=== PATIENT | male | born 1970 | race Caucasian/White ===

== ENCOUNTER 2018-05-26 06:39 | Day surgery (SDC) | payer OTHER ==
[2018-05-26] VITALS (490 sets, daily range): BP systolic 92–120; BP diastolic 71–90; PULSE 65–81; TEMP 97.6–98.5; O2SAT 94–100
[~2018-05-26] VITALS: Ht 185.4 cm; Wt 127.5 kg
[2018-05-26 07:39] LABS: HEMATOCRIT 42.6 % (42.0-52.0); HEMOGLOBIN 14.9 g/dl (13.5-18.0); MEAN CELL VOLUME 89 fl (80.0-100.0); MEAN CORPUSCULAR HEMOGLOBIN 31 pg (27.0-31.0); MEAN CORPUSCULAR HGB CONC 35 g/dl (33.0-37.0); MEAN PLATELET VOLUME 10.1 fl (7.4-10.4); PLATELET COUNT 301 K/mm3 (130-400); RED BLOOD COUNT 4.78 M/mm3 (4.20-5.60); REDCELL DISTRIBUTION WIDTH-CV 12.6 % (11.5-14.5)
[2018-05-26 07:44] LABS: INR 0.9 (0.8-3.0); PROTHROMBIN TIME 9.8 SECONDS (9.7-12.8)
[2018-05-26 07:45] LABS: CALCIUM 9.1 mg/dL (8.4-10.2); CREATININE, serum 0.9 mg/dL (0.66-1.25); POTASSIUM 4.5 mmol/L (3.4-5.0)
[2018-05-26] MEDS ORDERED: ASPIRIN 81M81 MG/TA2 PO (08:09)
[2018-05-26] MEDS ORDERED: TOPROL XL 25MG25 MG PO (08:09)
[2018-05-26] MEDS ORDERED: NITROSTAT0.4 MG/TAB SL (08:10)
[2018-05-26] MEDS ORDERED: PERCOCET 325 MG1 TA2 PO (08:25)
--- NOTE | 2018-05-26 10:43 | NUR ---
Pt to procedure,report to SVITLANA Rosas.
--- NOTE | 2018-05-26 11:12 | NUR ---
ALL MEDS GIVEN VIA VERBAL WITH READBACK. SEE MERGE FOR ADMIN TIMES.
--- NOTE | 2018-05-26 12:03 | NUR ---
Per report from [facility] to transfer to ICU #1.
--- NOTE | 2018-05-26 12:15 | NUR ---
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 Flat time restrictions reviewed with patient. Care assumed.
--- NOTE | 2018-05-26 13:15 | NUR ---
PATIENT C/O RIGHT LEG PAIN WHEN FEELING PULSES AND THEN WHEN I PALPATE HIS CALF. DR. HAINES CALLED WITH UPDATE. ORDER FOR ULTRASOUND RECEIVED.
--- NOTE | 2018-05-26 16:43 | NUR ---
PATIENT ALLOWED TO GET UP FROM FLAT TIME AT 1620. HE STATES HE NEEDS TO HAVE A BM. PATIENT HAS BM THEN GETS BACK IN BED. AT APPROX 1630, PATIENT C/O INTENSE PAIN IN RIGHT GROIN. ESTIMATING HIS BODY LANGUAGE, HIS PAIN WAS 10/10. PATIENT GROIN SITE ASSESSED, CONTINUES TO BE SOFT AND DRESSING HAS SMALL AMOUNT OF DRAINAGE ON SIDE AGAINST THE SKIN. NO EVIDENCE OF HEMATOMA OR BLEEDING. VS WNL. BP 127/92, HR 65. PATIENT'S PAIN IS LESS AFTER A FEW MINUTES. HE STATES HIS PAIN STARTS IN THE GROIN AND TRAVELS ALL THE WAY DOWN THE LEG. DR. HAINES CALLED WITH UPDATE WHILE I'M AT THE BEDSIDE. HE STATES TO GET AN ARTERIAL ULTRASOUND IN THE MORNING. ALSO RECEIVED ORDER FOR BEDREST UNTIL ULTRASOUND TOMORROW.
--- NOTE | 2018-05-26 17:30 | NUR ---
REASSESSED PATIENT MULTIPLE TIMES OVER THE PAST HOUR. PATIENT STATES THAT HIS PAIN IS MUCH BETTER AND IS CURRENTLY IN THE RIGHT GROIN AND GOES DOWN TO THE RIGHT KNEE AREA. PULSES CONTINUE TO BE PALPABLE IN RIGHT FOOT. WILL CONTINUE TO MONITOR.
--- NOTE | 2018-05-26 19:30 | NUR ---
RIGHT FEMORAL SITE: SCANT BLOODY DRAINAGE ON DRESSING. SITE TENDER DIRECTLY OVER INSERTION SITE, BUT SURROUNDING AREA NON-TENDER AND SOFT. NO HEMATOMA PRESENT. PT RIGHT LEG COOLER THAN LEFT LEG. PULSES PRESENT IN BOTH FEET. PT DID JUMP WHEN SITE PALPATED DIRECTLY ON TOP. PT RATES PAIN 3/10 AT SITE AND DESCRIBED DULL AND ACHEY, NON-RADIATING.
--- NOTE | 2018-05-26 19:40 | NUR ---
Bedside report given to SVITLANA Ozuna. Groin site examined together. Patient site clean and soft. Scant drainage on dressing. Patient has pain when site palpated. Plan of care reviewed. Care turned over at this time.
[2018-05-27] VITALS (599 sets, daily range): BP systolic 107–123; BP diastolic 76–88; PULSE 75–77; TEMP 98; O2SAT 84–100
[2018-05-27 05:03] LABS: BASO % 0.4 % (0.0-2.0); EOS # 0.3 (0.0-0.7); EOS % 3.1 % (0-4.0); GRAN % 62.4 % (42.2-75.2); HEMATOCRIT 39.8 % (42.0-52.0); HEMOGLOBIN 13.9 g/dl (13.5-18.0); LYMPH # 2.6 (1.2-3.4); LYMPH % 26.3 % (20.0-51.0); MEAN CELL VOLUME 88 fl (80.0-100.0); MEAN CORPUSCULAR HEMOGLOBIN 31 pg (27.0-31.0); MEAN CORPUSCULAR HGB CONC 35 g/dl (33.0-37.0); MEAN PLATELET VOLUME 10.1 fl (7.4-10.4); MONO # 0.7 (0.1-0.6); MONO % 7.4 % (1.7-9.3); PLATELET COUNT 267 K/mm3 (130-400); REDCELL DISTRIBUTION WIDTH-CV 12.4 % (11.5-14.5)
[2018-05-27 05:13] LABS: CALCIUM 8.5 mg/dL (8.4-10.2); CREATININE, serum 0.81 mg/dL (0.66-1.25)
--- NOTE | 2018-05-27 07:10 | NUR ---
BEDSIDE REPORT RECEIVED FROM SVITLANA MARTELL. PATIENT SITTING UP ON SIDE OF BED WITH C/O SMALL AMOUNT OF RIGHT GROIN/LEG PAIN. VS WNL. CARE ASSUMED.
[2018-05-27] MEDS ORDERED: BRILINTA90 MG PO (09:48)
[2018-05-27] MEDS ORDERED: TOPROL XL 25MG25 MG PO (09:48)
[2018-05-27] MEDS ORDERED: LIPITOR 80MG80 MG PO (09:48)
[2018-05-27] MEDS ORDERED: ASPIRIN 81M81 MG/TA2 PO (09:48)
[2018-05-27] MEDS ORDERED: NITROSTAT0.4 MG/TAB SL (09:48)
[2018-05-27] MEDS ORDERED: TYLENOL 325MG325 MG PO (09:48)
--- NOTE | 2018-05-27 10:45 | NUR ---
PATIENT DISCHARGED AFTER DISCHARGE INSTRUCTIONS AND POST CATH INSTRUCTIONS REVIEWED. FOLLOW UP APPT AND PRESCRIPTIONS SENT WITH THE PATIENT. QUESTIONS ANSWERED. PATIENT WALKED OUT TO THE VISITOR ENTRANCE AND LEFT VIA PRIVATE VEHICLE.
== END 2018-05-27 10:50 | disposition home or self-care (01) ==
LOC: COL.CAR 06:39 → ICU 12:33 → COL.CAR 05-27 10:50
PROVIDERS: Internal Medicine Cardiovascular Disease
DX: I25.10 Atherosclerotic heart disease of native coronary artery without angina pectoris (principal); R94.39 Abnormal result of other cardiovascular function study; G47.30 Sleep apnea, unspecified; I31.9 Disease of pericardium, unspecified; Z82.49 Family history of ischemic heart disease and other diseases of the circulatory system
CPT/HCPCS: OP; C1725; C1760; C1769; C1874; C1887; C1894; C9600; J0583; J1644; J2250; J3010; Q9967

== ENCOUNTER 2018-06-06 16:33 | Inpatient (IN) | payer OTHER ==
[~2018-06-06] VITALS: Ht 368.3 cm; Wt 127.0 kg
[2018-06-06] VITALS (341 sets, daily range): BP systolic 106–120; BP diastolic 0–97; PULSE 70–71; TEMP 97.6–98.7; O2SAT 92–100
--- NOTE | 2018-06-06 16:31 | NUR ---
Received report from SVITLANA Alvarado from [facility].
[~2018-06-06 16:33] MED LIST: ASPIRIN 81M81 MG/TA2 PO; BRILINTA90 MG PO; LIPITOR 80MG80 MG PO; NITROSTAT0.4 MG/TAB SL; PERCOCET 325 MG1 TA2 PO; TOPROL XL 25MG25 MG PO; TYLENOL 325MG325 MG PO
--- NOTE | 2018-06-06 18:53 | NUR ---
Finished patients assessment. Got patient settled. Called JOSE Hubbard and and Dr. Hopkins to confirm diet. Patient is resting in bed.
--- NOTE | 2018-06-06 20:00 | NUR ---
Shift assessment complete at this time. Plan of care reviewed at bedside with patient. Additional time taken to address any other needs or concerns. Vitals stable at this time. Denies pain or any other discomfort. Reports minor palpitations with no chest pain. Will continue to monitor.
[2018-06-06 22:18] LABS: ALBUMIN 3.8 gm/dL (3.5-5.0); BILIRUBIN,TOTAL 0.2 mg/dL (0.0-1.0); CREATININE, serum 0.84 mg/dL (0.66-1.25); POTASSIUM 4.5 mmol/L (3.4-5.0)
[2018-06-07] VITALS (536 sets, daily range): BP systolic 100–113; BP diastolic 70–92; PULSE 71–80; TEMP 9.8; O2SAT 94–100
--- NOTE | 2018-06-07 | NUR ---
Pt sleeping comfortably in bed. Denies pain or any other discomfort. Vitals stable at this time. Will continue to monitor.
--- NOTE | 2018-06-07 04:00 | NUR ---
Pt resting comfortably in bed. Denies pain or any other discomfort. Vitals stable at this time. Will continue to monitor.
[2018-06-07 05:22] LABS: BASO % 0.4 % (0.0-2.0); EOS # 0.2 (0.0-0.7); GRAN # 5.9 (1.4-6.5); GRAN % 59.1 % (42.2-75.2); HEMATOCRIT 40.8 % (42.0-52.0); HEMOGLOBIN 14.4 g/dl (13.5-18.0); LYMPH # 3.1 (1.2-3.4); MEAN CELL VOLUME 88 fl (80.0-100.0); MEAN CORPUSCULAR HEMOGLOBIN 31 pg (27.0-31.0); MEAN CORPUSCULAR HGB CONC 35 g/dl (33.0-37.0); MEAN PLATELET VOLUME 9.7 fl (7.4-10.4); MONO # 0.7 (0.1-0.6); MONO % 7.4 % (1.7-9.3); PLATELET COUNT 352 K/mm3 (130-400); RED BLOOD COUNT 4.62 M/mm3 (4.20-5.60); REDCELL DISTRIBUTION WIDTH-CV 12.6 % (11.5-14.5)
[2018-06-07 05:31] LABS: CALCIUM 8.9 mg/dL (8.4-10.2); CHOLESTEROL RISK RATIO 3.6; CREATININE, serum 0.81 mg/dL (0.66-1.25)
[2018-06-07 06:01] LABS: TSH w REFLEX 3.21 uIU/mL (0.465-4.680)
--- NOTE | 2018-06-07 07:35 | NUR ---
Bedside report given to SVITLANA Max.
--- NOTE | 2018-06-07 08:20 | NUR ---
PATIENT RESTING IN BED AT THIS TIME. I WENT OVER THE PLANS FOR THE MORNING WITH HIM AND THAT HE SHOULD REMAIN NOTHING TO EAT OR DRINK IN PREPERATION FOR A CARDIOVERSION. CARDIOLOGY IS AWARE OF PATIENT.
--- NOTE | 2018-06-07 09:29 | NUR ---
AVE met with the patient to discuss discharge plan. The patient is stationed at [place]. He states he lives in the [facility] during the week on [place] and then returns back home to [place] on the weekend. He reports his (Shruthi) is living in her home town, [place], [place]. He reports independence with ADLs and does not use any DME. The patient receives primary care at [facility] and also receives his meds there. He reports no difficulties obtaining his meds. The patient does not have advanced directives and he was not interested in completing them at this time. The patient plans to return home upon discharge. No additional needs at this time.
--- NOTE | 2018-06-07 10:50 | NUR ---
CARDIOVERSION COMPLETED WITH DR. HAINES.HE WAS PLACED ON THE DEFIBRILLATOR. DR. HAINES GAVE 60 MG OF PROPOFOL. PATIENT PLACED ON 7L OXYMASK. 1 SHOCK DELIVERED. PATIENT CONVERRTED AND IS CURRENTLY IN NORMAL SINUS RHYTHM. PATIENT IS COMPLETELY AWAKE AND ALERT. HE IS LOOKING AT THE MENU AND GOING TO ORDER SOME FOOD. VSS.
--- NOTE | 2018-06-07 14:30 | NUR ---
PATIENT UP AND AMBULATING AROUND IN THE HALLS. HE STATES THE DISCOMFORT IN HIS CHEST IN GONE. WAITING FOR BED UPSTAIRS.
--- NOTE | 2018-06-07 15:00 | NUR ---
Patiemnt arrived to the floor from ICU around this time, he is alert/oriented, vital signs stable, heart RRR/ SR on tele, denies any chest pain or discomfort, independent in his room
--- NOTE | 2018-06-07 15:35 | NUR ---
REPORT CALLED TO SVITLANA ESPINOSA ON MEDICAL. PATIENT WILL BE TAKEN BY WHEELCHAIR TO ROOM 308. PLACED ON PORTABLE TELEMETRY. PLAN OF CARE DISCUSSED.
--- NOTE | 2018-06-07 22:00 | NUR ---
pt resting in bed A+Ox4. reports no pain. no soa. no needs at this time. iv flushes well/ shift assessment complete. call light in reach
[2018-06-08] VITALS (9 sets, daily range): BP systolic 110–139; BP diastolic 66–83; PULSE 71–96; TEMP 97.8–98.3
--- NOTE | 2018-06-08 05:09 | NUR ---
PT HAD AN UNEVENTFUL NIGHT. SLIGHT DISCONFORT IN THE CENTER OF CHEST, PT STATES, "THIS IS THE DISCOMFORT I HAVE BEEN FEELING SINCE THIS ALL STARTED, NOTHING NEW." REPORTS NO NEEDS FOR INTERVENTION. PT RESTING IN BED NOW. NO NEEDS AT THIS TIME. CALL LIGHT IN REACH
--- NOTE | 2018-06-08 07:27 | NUR ---
report given to SVITLANA Mejia. pt reports no needs at this time.
--- NOTE | 2018-06-08 07:55 | NUR ---
Pt left the floor at this time for procedure.
--- NOTE | 2018-06-08 09:17 | NUR ---
Pt returned to room 308.
--- NOTE | 2018-06-08 09:55 | NUR ---
Assessment complete. Pt is AXO X3, states he has mild discomfort that is the same he has continued to have. He denied the desire for pain medication. Breathing is even and unlabored on room air. Tele on. LA INT flushes easily, remains free of complications, and is CDI. Pt is sitting up in the chair watching TV at this time and he denies further needs. Call light within reach, will continue to monitor.
--- NOTE | 2018-06-08 10:12 | NUR ---
Initial visit; Patient thanked [employer] Feeder for looking in on him and offering God's blessings.
[2018-06-08] MEDS ORDERED: MULTAQ400 MG PO (12:52)
--- NOTE | 2018-06-08 14:17 | NUR ---
Pt discharged at this time. LA INT discontinued with the catheter tip intact. Education provided and all questions were answered. Pt verbalizes understanding. Pt escourted out ambulatory with this nurse.
== END 2018-06-08 14:17 | disposition home or self-care (01) | DRG 310 ==
LOC: ICU 16:33 → MEDICAL 06-07 15:50
PROVIDERS: Nurse Practitioner; ADMIT Hospitalist
PROC: 5A2204Z Restoration of Cardiac Rhythm, Single (ICD-10-PCS; principal; 2018-06-07)
DX: I48.91 Unspecified atrial fibrillation (principal); I25.10 Atherosclerotic heart disease of native coronary artery without angina pectoris; Z95.5 Presence of coronary angioplasty implant and graft; I48.92 Unspecified atrial flutter; G47.30 Sleep apnea, unspecified
CPT/HCPCS: 99222-AI; 99239; A9500; J2785

== ENCOUNTER 2018-09-07 15:49 | Outpatient (RCR) | payer OTHER ==
[~2018-09-07 15:49] MED LIST changes: +MULTAQ400 MG PO
== END 2018-09-27 | disposition home or self-care (01) ==
LOC: COL.CR
DX: Z48.812 Encounter for surgical aftercare following surgery on the circulatory system (principal); Z95.5 Presence of coronary angioplasty implant and graft